=== PATIENT | female | born 1940 | race Two or more races ===

== ENCOUNTER 2017-07-19 10:01 | Emergency (ER) | payer OTHER ==
[~2017-07-19] VITALS: Ht 149.9 cm; Wt 55.3 kg
[~2017-07-19 10:01] MED LIST: ALTACE10 M1 PO; BIAXIN500 MG PO; CARAFATE SU1 G/10 ML PO; DURICEF500 MG PO; EVISTA60 MG PO; FLAGYL375 MG PO; FOSAMAX5 MG PO; INTESTINEX680 MG PO; LISINOPRIL20 MG PO; LORATADINE PO; PEPCID20 MG PO; PRILOSEC10 MG PO; PYRIDIUM200 MG PO; SYNTHROID100 MCG PO; TUSSIONEX PENNKI5 ML PO; ZITHROMAX500 MG PO; ZYRTEC10 MG PO
[2017-07-19] MEDS ORDERED: ACIDOPHILUS1 EAC3 PO (10:53)
== END 2017-07-19 11:10 | disposition home or self-care (01) ==
LOC: ER 10:01
DX: K29.00 Acute gastritis without bleeding (principal)

== ENCOUNTER 2017-09-24 15:53 | Emergency (ER) | payer OTHER ==
[~2017-09-24] VITALS: Ht 149.9 cm; Wt 54.4 kg
[~2017-09-24 15:53] MED LIST changes: +ACIDOPHILUS1 EAC3 PO
== END 2017-09-24 17:54 | disposition home or self-care (01) ==
LOC: ER 15:53
DX: K29.50 Unspecified chronic gastritis without bleeding (principal)

== ENCOUNTER 2017-12-22 10:24 | Emergency (ER) | payer OTHER ==
[~2017-12-22] VITALS: Ht 149.9 cm; Wt 55.3 kg
[2017-12-22] MEDS ORDERED: LIPITOR20 MG (11:00)
== END 2017-12-22 13:00 | disposition home or self-care (01) ==
LOC: ER 10:24
DX: K27.9 Peptic ulcer, site unspecified, unspecified as acute or chronic, without hemorrhage or perforation (principal)

== ENCOUNTER 2018-05-17 14:30 | Emergency (ER) | payer OTHER ==
[~2018-05-17] VITALS: Ht 147.3 cm; Wt 54.9 kg
[~2018-05-17 14:30] MED LIST changes: +LIPITOR20 MG
== END 2018-05-17 18:10 | disposition home or self-care (01) ==
LOC: ER 14:30
DX: K21.9 Gastro-esophageal reflux disease without esophagitis (principal)

== ENCOUNTER 2018-07-27 14:01 | Emergency (ER) | payer OTHER ==
[~2018-07-27] VITALS: Ht 154.9 cm; Wt 63.5 kg
== END 2018-07-27 17:10 | disposition home or self-care (01) ==
LOC: ER 14:01
DX: S20.211A Contusion of right front wall of thorax, initial encounter (principal); W18.39XA Other fall on same level, initial encounter; Y93.89 Activity, other specified; Y92.488 Other paved roadways as the place of occurrence of the external cause; Y99.8 Other external cause status

== ENCOUNTER 2018-10-15 13:54 | Emergency (ER) | payer OTHER ==
[~2018-10-15] VITALS: Ht 157.5 cm; Wt 55.3 kg
== END 2018-10-15 14:54 | disposition home or self-care (01) ==
LOC: ER 13:54
DX: K29.70 Gastritis, unspecified, without bleeding (principal)

== ENCOUNTER 2019-04-03 12:58 | Emergency (ER) | payer OTHER ==
[~2019-04-03] VITALS: Ht 157.5 cm; Wt 55.3 kg
== END 2019-04-03 15:51 | disposition home or self-care (01) ==
LOC: ER 12:58
DX: K21.9 Gastro-esophageal reflux disease without esophagitis (principal)

== ENCOUNTER 2019-05-13 10:08 | Emergency (ER) | payer OTHER ==
[~2019-05-13] VITALS: Ht 149.9 cm; Wt 55.3 kg
== END 2019-05-13 12:59 | disposition home or self-care (01) ==
LOC: ER 10:08
DX: L03.116 Cellulitis of left lower limb (principal)

== ENCOUNTER 2019-09-20 14:02 | Emergency (ER) | payer OTHER ==
[~2019-09-20] VITALS: Ht 149.9 cm; Wt 55.3 kg
[2019-09-20] MEDS ORDERED: ACID REDUCER20 M1 PO (16:06)
[2019-09-20] MEDS ORDERED: CARAFATE1 GM PO (16:06)
== END 2019-09-20 16:14 | disposition home or self-care (01) ==
LOC: ER 14:02
DX: K29.00 Acute gastritis without bleeding (principal); J06.9 Acute upper respiratory infection, unspecified

== ENCOUNTER 2020-10-05 14:28 | Emergency (ER) | payer OTHER ==
[~2020-10-05] VITALS: Ht 149.9 cm; Wt 55.8 kg
[~2020-10-05 14:28] MED LIST changes: +ACID REDUCER20 M1 PO; +CARAFATE1 GM PO
[2020-10-05] MEDS ORDERED: AMOX1TAB5 (14:53)
[2020-10-05] MEDS ORDERED: SIMVASTATIN5 MG (14:53)
== END 2020-10-05 15:50 | disposition home or self-care (01) ==
LOC: ER 14:28
DX: K29.70 Gastritis, unspecified, without bleeding (principal)

== ENCOUNTER 2020-11-18 14:58 | Emergency (ER) | payer OTHER ==
[~2020-11-18] VITALS: Ht 149.9 cm; Wt 56.2 kg
[~2020-11-18 14:58] MED LIST changes: +AMOX1TAB5; +SIMVASTATIN5 MG
[2020-11-18] MEDS ORDERED: SYNTHROID75 MCG PO (15:15)
== END 2020-11-18 19:31 | disposition home or self-care (01) ==
LOC: ER 14:58
DX: K30 Functional dyspepsia (principal); K21.9 Gastro-esophageal reflux disease without esophagitis

== ENCOUNTER 2021-03-29 14:19 | Emergency (ER) | payer OTHER ==
[~2021-03-29] VITALS: Ht 149.9 cm; Wt 56.2 kg
[~2021-03-29 14:19] MED LIST changes: +SYNTHROID75 MCG PO
[2021-03-29] MEDS ORDERED: STOOL SOFTENER50 MG PO (16:35)
[2021-03-29] MEDS ORDERED: EPSOM SALT454 G1 TOP (16:35)
== END 2021-03-29 18:26 | disposition home or self-care (01) ==
LOC: ER 14:19
DX: K64.8 Other hemorrhoids (principal)

== ENCOUNTER 2021-09-30 14:38 | Emergency (ER) | payer OTHER ==
[~2021-09-30] VITALS: Ht 147.3 cm; Wt 55.3 kg
[~2021-09-30 14:38] MED LIST changes: +EPSOM SALT454 G1 TOP; +STOOL SOFTENER50 MG PO
== END 2021-09-30 16:27 | disposition home or self-care (01) ==
LOC: ER 14:38
DX: M54.2 Cervicalgia (principal); Z88.2 Allergy status to sulfonamides

== ENCOUNTER 2022-02-23 11:42 | Emergency (ER) | payer OTHER ==
[~2022-02-23] VITALS: Ht 149.9 cm; Wt 56.7 kg
[2022-02-23] MEDS ORDERED: GLYCOPYRRO0.2 MG/1 M (12:28)
== END 2022-02-23 15:06 | disposition home or self-care (01) ==
LOC: ER 11:42
DX: K08.89 Other specified disorders of teeth and supporting structures (principal); M62.838 Other muscle spasm; I10 Essential (primary) hypertension; Z88.2 Allergy status to sulfonamides; E03.9 Hypothyroidism, unspecified

== ENCOUNTER 2022-03-22 18:08 | Emergency (ER) | payer OTHER ==
[~2022-03-22] VITALS: Ht 149.9 cm; Wt 56.7 kg
[~2022-03-22 18:08] MED LIST changes: +GLYCOPYRRO0.2 MG/1 M
[2022-03-22] MEDS ORDERED: AMOX-CLAV 875-1 EACH PO (18:44)
== END 2022-03-22 19:41 | disposition home or self-care (01) ==
LOC: ER 18:08
DX: S81.852A Open bite, left lower leg, initial encounter (principal); W54.0XXA Bitten by dog, initial encounter; Y93.9 Activity, unspecified; Y92.9 Unspecified place or not applicable; Z88.2 Allergy status to sulfonamides; E78.00 Pure hypercholesterolemia, unspecified; I10 Essential (primary) hypertension; J45.909 Unspecified asthma, uncomplicated

== ENCOUNTER 2022-08-20 12:28 | Emergency (ER) | payer OTHER ==
[~2022-08-20] VITALS: Ht 157.5 cm; Wt 56.7 kg
[~2022-08-20 12:28] MED LIST changes: +AMOX-CLAV 875-1 EACH PO
== END 2022-08-20 18:18 | disposition home or self-care (01) ==
LOC: ER 12:28
DX: J45.902 Unspecified asthma with status asthmaticus (principal); Z20.822 Contact with and (suspected) exposure to COVID-19; Z88.2 Allergy status to sulfonamides

== ENCOUNTER → 2022-11-12 | Emergency (ER) | payer OTHER ==
[~2022-11-12] VITALS: Ht 149.9 cm; Wt 56.7 kg
== END | disposition left against medical advice (07) ==
LOC: ER 11:50
DX: Z53.21 Procedure and treatment not carried out due to patient leaving prior to being seen by health care provider (principal)

== ENCOUNTER 2023-03-16 13:10 | Emergency (ER) | payer OTHER ==
[~2023-03-16] VITALS: Ht 149.9 cm; Wt 56.2 kg
== END 2023-03-16 17:07 | disposition home or self-care (01) ==
LOC: ER 13:10
DX: M54.50 Low back pain, unspecified (principal); M54.32 Sciatica, left side; I10 Essential (primary) hypertension; E03.8 Other specified hypothyroidism; Z88.2 Allergy status to sulfonamides

== ENCOUNTER 2023-10-27 08:57 | Emergency (ER) | payer OTHER ==
[~2023-10-27] VITALS: Ht 149.9 cm; Wt 56.2 kg
[2023-10-27] MEDS ORDERED: LEVALBUTEROL HCL 1.25 MG/3 ML SOLUTION IH STA (09:25)
[2023-10-27] MEDS ORDERED: HYDROCODONE/CHLORPHEN P-STIREX 5 ML ML PO STA (09:25)
[2023-10-27] MEDS ORDERED: METHYLPREDNISOLONE SOD SUCC 125 MG VIAL IV STA (09:26)
[2023-10-27 10:35] LABS: HEMATOCRIT 37.4 % (36.0-45.00); HEMOGLOBIN 12.8 g/dL (12.0-15.00); MEAN CELL VOLUME 91.1 fL (80.00-100.00); MEAN CORPUSCULAR HEMOGLOBIN 31.1 pg (27.00-32.0); MEAN CORPUSCULAR HGB CONC 34.2 g/dl (32.0-36.0); PLATELET COUNT 370 K/uL (150-450); RED BLOOD COUNT 4.11 M/uL (4.00-6.00); RED CELL DISTRIBUTION WIDTH 14.2 % (11.5-14.5)
== END 2023-10-27 11:45 | disposition home or self-care (01) ==
LOC: ER 08:58
PROVIDERS: General Practice
DX: R05.8 Other specified cough (principal); Z88.2 Allergy status to sulfonamides; I10 Essential (primary) hypertension; J45.909 Unspecified asthma, uncomplicated
CPT/HCPCS: 36415; 94640; 99283; J3490

== ENCOUNTER 2024-02-16 13:54 | Emergency (ER) | payer OTHER ==
[~2024-02-16] VITALS: Ht 157.5 cm; Wt 55.3 kg
[2024-02-16] MEDS ORDERED: DEXAMETHASONE 4 MG TABLET PO STA (15:32)
[2024-02-16] MEDS ORDERED: DEXAMETHASONE SODIUM PHOSPHATE 4 MG/ML VIAL IM STA (15:36)
== END 2024-02-16 18:10 | disposition home or self-care (01) ==
LOC: ER 13:54
DX: R53.81 Other malaise (principal); K29.70 Gastritis, unspecified, without bleeding; Z88.2 Allergy status to sulfonamides
CPT/HCPCS: 96372; 99282; J1100

== ENCOUNTER 2024-04-24 10:58 | Emergency (ER) | payer OTHER ==
[~2024-04-24] VITALS: Ht 149.9 cm; Wt 52.2 kg
[2024-04-24] MEDS ORDERED: KETOROLAC TROMETHAMINE 30 MG VIAL IM STA (14:32)
[2024-04-24] MEDS ORDERED: ORPHENADRINE CITRATE 30 MG/ML AMPUL IM STA (14:32)
== END 2024-04-24 15:27 | disposition home or self-care (01) ==
LOC: ER 10:58
DX: M54.9 Dorsalgia, unspecified (principal); Z88.2 Allergy status to sulfonamides
CPT/HCPCS: 96372; 99282; J1885; J2360

== ENCOUNTER 2024-08-04 15:19 | Emergency (ER) | payer OTHER ==
[~2024-08-04] VITALS: Ht 149.9 cm; Wt 54.4 kg
[2024-08-04] MEDS ORDERED: KETOROLAC TROMETHAMINE 60 MG VIAL IM ONE (17:27)
[2024-08-04] MEDS ORDERED: DEXAMETHASONE SODIUM PHOSPHATE 4 MG/ML VIAL ONE (17:27)
== END 2024-08-04 17:35 | disposition home or self-care (01) ==
LOC: ER 15:22
DX: M54.50 Low back pain, unspecified (principal); Z88.2 Allergy status to sulfonamides; I10 Essential (primary) hypertension; E03.8 Other specified hypothyroidism; E78.49 Other hyperlipidemia

== ENCOUNTER 2024-09-09 11:23 | Emergency (ER) | payer OTHER ==
[~2024-09-09] VITALS: Ht 149.9 cm; Wt 54.4 kg
[2024-09-09] MEDS ORDERED: BUDESONIDE-FO10.2 G1 (11:53)
[2024-09-09] MEDS ORDERED: BENZONATATE200 M1 PO (13:00)
[2024-09-09] MEDS ORDERED: PEPCID AC20 MG PO (13:00)
[2024-09-09] MEDS ORDERED: SINGULAIR10 MG PO (13:00)
[2024-09-09] MEDS ORDERED: AZITHROMYCIN500 MG PO (13:00)
== END 2024-09-09 13:05 | disposition home or self-care (01) ==
LOC: ER 11:25
DX: R05.8 Other specified cough (principal); Z88.2 Allergy status to sulfonamides; J45.909 Unspecified asthma, uncomplicated; E03.8 Other specified hypothyroidism; I10 Essential (primary) hypertension

== ENCOUNTER 2024-11-14 12:33 | Emergency (ER) | payer OTHER ==
[~2024-11-14] VITALS: Ht 149.9 cm; Wt 54.4 kg
[~2024-11-14 12:33] MED LIST changes: +AZITHROMYCIN500 MG PO; +BENZONATATE200 M1 PO; +BUDESONIDE-FO10.2 G1; +PEPCID AC20 MG PO; +SINGULAIR10 MG PO
[2024-11-14] MEDS ORDERED: KETOROLAC TROMETHAMINE 60 MG VIAL IM ONE ×2 (13:30→13:32)
== END 2024-11-14 15:46 | disposition home or self-care (01) ==
LOC: ER 12:33
DX: M54.9 Dorsalgia, unspecified (principal); M54.50 Low back pain, unspecified; I10 Essential (primary) hypertension; E03.8 Other specified hypothyroidism; Z88.2 Allergy status to sulfonamides
CPT/HCPCS: 72100; 96372; 99283; J1885

== ENCOUNTER 2025-01-09 13:22 | Emergency (ER) | payer OTHER ==
[~2025-01-09] VITALS: Ht 149.9 cm; Wt 52.2 kg
[2025-01-09] MEDS ORDERED: METHYLPREDNISOLONE 4 MG TABLET PO ONE (17:15)
[2025-01-09] MEDS ORDERED: KETOROLAC TROMETHAMINE 60 MG VIAL IM ONE (17:15)
== END 2025-01-09 17:48 | disposition home or self-care (01) ==
LOC: ER 13:22
DX: M54.9 Dorsalgia, unspecified (principal); M85.80 Other specified disorders of bone density and structure, unspecified site; I10 Essential (primary) hypertension; Z88.2 Allergy status to sulfonamides

== ENCOUNTER 2025-03-26 13:23 | Emergency (ER) | payer OTHER ==
[~2025-03-26] VITALS: Ht 134.6 cm; Wt 52.2 kg
[2025-03-26] MEDS ORDERED: FAMOTIDINE/PF 20 MG/2 ML VIAL IV ONE (18:00)
== END 2025-03-26 18:40 | disposition home or self-care (01) ==
LOC: ER 13:51
DX: K30 Functional dyspepsia (principal); K29.60 Other gastritis without bleeding; I10 Essential (primary) hypertension; Z88.2 Allergy status to sulfonamides
CPT/HCPCS: 96365; 99282; J3490